=== PATIENT | male | born 1990 | race Hispanic/Latino ===

== ENCOUNTER 2016-10-15 12:06 | Emergency (ER) | payer MEDICAID ==
[~2016-10-15] VITALS: Ht 183.5 cm; Wt 104.3 kg
[2016-10-15] MEDS ORDERED: LORazepam Inj 2mg/ml 1ml IV ONE (12:30)
[2016-10-15 12:38] LABS: BASOPHILS % (AUTO) 1.3 % (0.0-2.0); EOSINOPHILS % (AUTO) 0.8 % (0.0-3.0); LYMPHOCYTES % (AUTO) 25.5 % (20.0-45.0); MEAN CORPUSCULAR HEMOGLOBIN 30.9 PG (27.0-31.0); MEAN CORPUSCULAR HGB CONC 34.2 G/DL (32.0-36.0); MEAN CORPUSCULAR VOLUME 90 FL (80-99); MEAN PLATELET VOLUME 6.7 FL (6.5-10.1); MONOCYTES % (AUTO) 6.8 % (1.0-10.0); NEUTROPHILS % (AUTO) 65.6 % (45.0-75.0); PLATELET COUNT 253 K/UL (150-450); RED BLOOD COUNT 5.03 M/UL (4.70-6.10); RED CELL DISTRIBUTION WIDTH 12.1 % (11.6-14.8); WHITE BLOOD COUNT 7.1 K/UL (4.8-10.8)
[2016-10-15 12:55] LABS: ALANINE AMINOTRANSFERASE 45 U/L (3-41); ALBUMIN/GLOBULIN RATIO 1.6 (1.0-2.7); ANION GAP 13 (5-15); ASPARTATE AMINO TRANSFERASE 28 U/L (5-40); CALCIUM 9.5 mg/dL (8.6-10.2); CARBON DIOXIDE 28 mEQ/L (20-30); CHLORIDE 99 mEQ/L (98-107); CREATININE 0.9 mg/dL (0.7-1.2); GLOMERULAR FILTRATION RATE > 60 mL/min (>60); HEMOLYSIS 42; POTASSIUM 4.3 mEQ/L (3.4-4.9); SODIUM 140 mEQ/L (135-145); TOTAL PROTEIN 7.2 g/dL (6.6-8.7)
[2016-10-15 13:00] VITALS: BP 132/76
[2016-10-15] MEDS ORDERED: KEFLEX500 MG ORAL (13:02)
--- NOTE | 2016-10-15 13:12 | Emergency Room Report ---
History of Present Illness General Chief Complaint: Overdose Source: Patient Present Illness HPI 26YOM BIBEMS for "taking too much meth earlier." Patient states he snorted an " 8 ball." Denies ETOH, other drugs. Denies chest pain, SOB, abd pain, headache , fever/chills. Asking for transfer to [place] for rehab. EMS endorses normal vital signs on scene. Allergies: Coded Allergies: HALOPERIDOL (Unverified Allergy, Unknown, 10/15/16) OLANZAPINE (Unverified Allergy, Unknown, 10/15/16) PENICILLINS (Unverified Allergy, Unknown, 10/15/16) TRAZODONE (Unverified Allergy, Unknown, 10/15/16) Patient History Past Medical History: none Past Surgical History: none Pertinent Family History: none Social History: Reports: drug use Immunizations: UTD Reviewed Nursing Documentation: PMH: Agreed, PSxH: Agreed Nursing Documentation-PMH Past Medical History: No Stated History Review of Systems All Other Systems: negative except mentioned in HPI Physical Exam Vital Signs Date Time Temp Pulse Resp B/P Pulse Ox O2 Delivery O2 Flow Rate FiO2 10/15/16 12:03 98.1 100 20 127/85 96 Room Air Sp02 EP Interpretation: reviewed, normal General Appearance: normal inspection, well appearing, no apparent distress, alert, GCS 15, non-toxic Head: normocephalic, atraumatic Eyes: bilateral eye EOMI, bilateral eye PERRL ENT: normal ENT inspection, hearing grossly normal, normal voice Neck: normal inspection, full range of motion, supple, no bony tend Respiratory: normal inspection, lungs clear, normal breath sounds, no respiratory distress, no retraction, no wheezing Gastrointestinal: normal inspection, normal bowel sounds, non tender, soft, no guarding, no hernia Genitourinary: no CVA tenderness Musculoskeletal: normal inspection, back normal, normal range of motion, Pam' s Sign negative Neurologic: normal inspection, alert, oriented x3, responsive, starcher and tenter range feeder III-XII nml as tested, motor strength/tone normal, speech normal Psychiatric: normal inspection, judgement/insight normal, mood/affect normal Skin: normal inspection, normal color, other - Folliculitis across chest Medical Decision Making Diagnostic Impression: Primary Impression: Drug overdose Qualified Codes: T50.901A - Poisoning by unspecified drugs, medicaments and biological substances, accidental (unintentional), initial encounter Additional Impression: Folliculitis ER Course Accidental/unintentional OD on meth, allegedly - Stable vitals here. Not tachy or hypertensive. - Calm, cooperative - Labs: No leuks or metabolic abnormalities. - Observed in ED for period of time, no desat or altered mental status - Patient asking for transfer to [place] for rehab - Specific request also made for [place] Folliculitis chest wall - Patient endorses shaving chest yesterday - RX Keflex Last Vital Signs Date Time Temp Pulse Resp B/P Pulse Ox O2 Delivery O2 Flow Rate FiO2 10/15/16 12:03 98.1 100 20 127/85 96 Room Air Status: improved Disposition: HOME, SELF-CARE Condition: Improved Scripts Cephalexin* (KEFLEX*) 500 Mg Capsule 500 MG ORAL Q6H for 7 Days, #28 CAP 0 Refills Prov: LETTY SOUSA M.D. 10/15/16 Referrals: NOT CHOSEN IPA/,REFERRING (PCP) Patient Instructions: Cellulitis, [id number] LETTY SOUSA M.D. Oct 15, 2016 13:12
[2016-10-15 13:17] VITALS: BP 136/80
[2016-10-15 13:25] LABS: ACETAMINOPHEN < 10 ug/mL (10-30); ALCOHOL < 10 mg/dL
== END 2016-10-15 13:17 | disposition home or self-care (01) ==
LOC: EDBD 12:06 → EMR 12:53
DX: T43.621A Poisoning by amphetamines, accidental (unintentional), initial encounter (principal); Y92.89 Other specified places as the place of occurrence of the external cause; Z88.0 Allergy status to penicillin; Z88.8 Allergy status to other drugs, medicaments and biological substances; L73.9 Follicular disorder, unspecified
CPT/HCPCS: 36415; 80053; 80329; 85025; 96374; 96375